=== PATIENT | female | born 1965 | race Caucasian/White ===

== ENCOUNTER 2018-07-15 14:03 | Outpatient (CLI) | payer BC ==
--- NOTE | 2018-07-15 14:33 | RAD ---
XR Cervical Spine 4 View Min: 07/15/2018 12:00 AM CLINICAL HISTORY: Spondylolisthesis There is slight anterior translation of C3 on C4 on the neutral and flexion position that reduces wit h extension. There is reversal the normal cervical lordosis. There is advanced disc degenerative disease at C4-5 and C6-7. There is moderate facet joint degenerative change at C4-5 through C6-7. The re is moderate to prominent osteoarthritic change at the facet joints at C3-4. Prevertebral soft tissues are normal appearing. Lung apices are clear. IMPRESSION: Moderate to severe cervical spondylosis with slight anterior translation of C3 on C4 which is likely degenerative. This reduces with extension but is stable with flexion.
== END 2018-07-15 14:04 | disposition home or self-care (01) ==
LOC: BICRAD 14:03
PROVIDERS: ATTEND Anesthesiology Pain Medicine
DX: M43.12 Spondylolisthesis, cervical region (principal); M47.812 Spondylosis without myelopathy or radiculopathy, cervical region
CPT/HCPCS: 72050

== ENCOUNTER 2018-09-08 11:52 | Outpatient (CLI) | payer BC ==
--- NOTE | 2018-09-08 12:29 | MMO ---
Bilateral MAMMO Bilat Screen [facility]. CLINICAL HISTORY: Patient is 52 years old and is seen for screening. The patient has the following family history of breast cancer: maternal grandmother, at age 98, inflammatory carcinoma. The patient has no personal history of cancer. VIEWS: The views performed were: bilateral craniocaudal with tomosynthesis and bilateral mediolateral oblique with tomosynthesis. FILMS COMPARED: The present examination has been compared to prior imaging studies performed at on 08/17/2014 and 09/20/2015. MAMMOGRAM FINDINGS: There are scattered fibroglandular densities. There is an oval mass measuring 28 millimeters with circumscribed margins seen in the middle region of the left breast at 12 o'clock. In the right breast, there are no suspicious masses, calcifications or areas of architectural distortion. IMPRESSION: MASS IN THE LEFT BREAST REQUIRES ADDITIONAL EVALUATION. AN ULTRASOUND EXAM IS RECOMMENDED. THE RESULTS OF THIS EXAM WERE SENT TO THE PATIENT. ACR BI-RADS Category 0 - Incomplete: Need additional imaging evaluation. [facility] will notify the patient of the need for additional imaging services. MAMMOGRAPHY NOTE: 1. A negative mammogram report should not delay a biopsy if a dominant of clinically suspicious mass is present. 2. Approximately 10% to 15% of breast cancers are not detected by mammography. 3. Adenosis and dense breasts may obscure an underlying neoplasm.
== END 2018-09-08 11:53 | disposition home or self-care (01) ==
LOC: BICMAMMO 11:52
PROVIDERS: ATTEND Family Medicine
DX: Z12.31 Encounter for screening mammogram for malignant neoplasm of breast (principal); N63.20 Unspecified lump in the left breast, unspecified quadrant; Z80.3 Family history of malignant neoplasm of breast
CPT/HCPCS: 77063; 77067

== ENCOUNTER 2018-09-15 13:05 | Outpatient (CLI) | payer BC ==
--- NOTE | 2018-09-15 13:58 | ULT ---
LEFT BREAST ULTRASOUND: 09/15/18 HISTORY: Follow-up mammogram. Attention is payed to the retroareolar region of the left breast , 12 o'clock position to evaluate a mass seen on prior mammogram. There is a 0.8 x 3 x 2.4 cm circumscribed cyst at 12 o'clock retroareol ar region of the left breast corresponding to the mammographic area of concern. There is one addition al smaller cyst measuring 0.7 x 0.8 x 1.0 cm in fairly close approximation to this larger cyst. IMPRESSION: 1. BIRADS 2: Benign Finding(s) Routine annual screening mammography (for women over age 40). 2. Left breast cyst, the largest accounts for the mammographic finding on the prior mammographic study, 09/08/18. POS: OFF
== END 2018-09-15 13:06 | disposition home or self-care (01) ==
LOC: BICMAMMO 13:05
PROVIDERS: ATTEND Family Medicine
DX: N63.22 Unspecified lump in the left breast, upper inner quadrant (principal); N60.02 Solitary cyst of left breast

== ENCOUNTER 2019-04-12 07:19 | Outpatient (CLI) | payer BC ==
--- NOTE | 2019-04-12 08:00 | ULT ---
Ultrasound of the pelvis: 04/12/2019 COMPARISON:None available HISTORY:Pelvic pain, polycystic ovarian syndrome TECHNIQUE: Multiplanar grayscale sonographic imaging of the pelvis obtained with transabdominal and e ndovaginal imaging. Right ovary was assessed with Doppler interrogation including color flow and spectral analysis. FINDINGS: The uterus measures7.8 x 4.7 x 4.8 cm and demonstrates an endometrial thickness ofapproxima tely 1.7 cm. Detailed assessment of the uterus is a limited secondary to body habitus and obscuration by shadowing. The right ovary measures2.9 x 3.5 x 2.6 cm. Blood flow could not be documented within the right ovary , likely secondary to its deep location within the pelvis and obscuration by overlying structures. The right ovary is not enlarged and no adjacent free fluid is seen. There is a probable cyst within t he right ovary measuring 2.0 x 1.6 cm. The left ovary could not be visualized on this examination. No free fluid is noted within the pelvis. IMPRESSION:The pelvis is not optimally assessed secondary to technical factors as described above. Th e endometrium measures 17 mm, is heterogeneous and is mildly thickened for a premenopausal female (normal thickness is 15 mm), which could be related to endometrial hyperplasia, endometrial polyp dis ease, or endometrial carcinoma. If the patient is postmenopausal (normal thickness is 5 mm), the appearance of the endometrium on this examination would be markedly abnormal.
== END 2019-04-12 07:20 | disposition home or self-care (01) ==
LOC: SCSULT 07:19
PROVIDERS: ATTEND Family Medicine
DX: N80.9 Endometriosis, unspecified (principal); E28.2 Polycystic ovarian syndrome; R10.9 Unspecified abdominal pain; R93.89 Abnormal findings on diagnostic imaging of other specified body structures
CPT/HCPCS: 76856

== ENCOUNTER 2019-06-15 12:48 | Outpatient (CLI) | payer BC ==
--- NOTE | 2019-06-15 15:51 | MRI ---
MRI OF THE PELVIS WITHOUT CONTRAST: COMPARISON: None. HISTORY: Endometrial hyperplasia. TECHNIQUE: Multiplanar, multisequence MRI images were obtained of the pelvis without contrast. FINDINGS: The fundus of the uterus has a slightly abnormal appearance. The junctional zone of the uterus is th ickened in this location and high T2 signal is seen within the uterine fundus. This could represent uterine adenomyosis. No suspicious mass is seen within the uterus. The cervix is unremarkable. There are 2 cystic lesions just above the uterus which likely are within the right ovary and represen t follicles in the right ovary. The left ovary is unremarkable. No pelvic adenopathy is seen. No marrow signal abnormality is present. IMPRESSION: Possible uterine adenomyosis involving the uterine fundus. POS: [facility]
== END 2019-06-15 12:49 | disposition home or self-care (01) ==
LOC: SCSMRI 12:48
PROVIDERS: ATTEND Family Medicine
DX: N85.00 Endometrial hyperplasia, unspecified (principal)
CPT/HCPCS: 72195

== ENCOUNTER 2020-03-01 12:53 | Outpatient (CLI) | payer BC ==
--- NOTE | 2020-03-01 13:40 | MMO ---
Bilateral MAMMO Bilat Screen [facility]. CLINICAL HISTORY: Patient is 54 years old and is seen for screening. The patient has the following family history of breast cancer: paternal grandmother, at age 98, inflammatory carcinoma. The patient has no personal history of cancer. VIEWS: The views performed were: bilateral craniocaudal with tomosynthesis and bilateral mediolateral oblique with tomosynthesis. FILMS COMPARED: The present examination has been compared to prior imaging studies performed at [facility] on 08/17/2014, 09/20/2015, 09/08/2018 and 09/15/2018. This study has been interpreted with the assistance of computer-aided detection. MAMMOGRAM FINDINGS: There are scattered fibroglandular densities. There is a round mass measuring 12 millimeters with circumscribed margins seen in the upper-outer region of the left breast. In the right breast, there are no suspicious masses, calcifications or areas of architectural distortion. IMPRESSION: MASS IN THE LEFT BREAST REQUIRES ADDITIONAL EVALUATION. AN ULTRASOUND EXAM IS RECOMMENDED. THE RESULTS OF THIS EXAM WERE SENT TO THE PATIENT. ACR BI-RADS Category 0 - Incomplete: Need additional imaging evaluation. [facility] will notify the patient of the need for additional imaging services. MAMMOGRAPHY NOTE: 1. A negative mammogram report should not delay a biopsy if a dominant of clinically suspicious mass is present. 2. Approximately 10% to 15% of breast cancers are not detected by mammography. 3. Adenosis and dense breasts may obscure an underlying neoplasm. Reported by: INGRIS VARELA MD Electonically Signed: [id number]
== END 2020-03-01 12:54 | disposition home or self-care (01) ==
LOC: BICMAMMO 12:53
PROVIDERS: ATTEND Family Medicine
DX: Z12.31 Encounter for screening mammogram for malignant neoplasm of breast (principal); Z80.3 Family history of malignant neoplasm of breast; N63.21 Unspecified lump in the left breast, upper outer quadrant
CPT/HCPCS: 77063; 77067

== ENCOUNTER 2020-03-08 13:54 | Outpatient (CLI) | payer BC ==
--- NOTE | 2020-03-08 14:18 | ULT ---
EXAM: US Breast Limited Lt PROVIDED CLINICAL HISTORY: Abnormal screening mammogram COMPARISON: Screening mammogram 03/01/2020 FINDINGS: Limited sonographic interrogation was performed of the left breast at the 2:00 position in the region of mammographic concern. A corresponding simple cyst is demonstrated. No concerning sonographic findings are evident. IMPRESSION: Mammogram abnormality corresponds to a simple cyst. BI-RADS 2 -- benign findings
== END 2020-03-08 13:55 | disposition home or self-care (01) ==
LOC: BICULT 13:54
PROVIDERS: ATTEND Family Medicine
DX: N63.20 Unspecified lump in the left breast, unspecified quadrant (principal); N60.02 Solitary cyst of left breast

== ENCOUNTER 2021-09-27 12:41 | Outpatient (CLI) | payer BC | END 2021-09-27 12:42 | disposition home or self-care (01) | LOC: BICMAMMO 12:41 | PROVIDERS: ATTEND Family Medicine | DX: Z12.31 Encounter for screening mammogram for malignant neoplasm of breast (principal); Z80.3 Family history of malignant neoplasm of breast | CPT/HCPCS: 77063; 77067 ==

== ENCOUNTER 2022-12-25 13:23 | Outpatient (CLI) | payer BC | END 2022-12-25 13:24 | disposition home or self-care (01) | LOC: BICMAMMO 13:23 | PROVIDERS: ATTEND Family Medicine | DX: Z12.31 Encounter for screening mammogram for malignant neoplasm of breast (principal); Z80.3 Family history of malignant neoplasm of breast | CPT/HCPCS: 77063; 77067 ==